=== PATIENT | male | born 1965 | race Caucasian/White ===

== ENCOUNTER 2020-09-04 09:22 | Day surgery (SDC) | payer BC ==
[2020-09-03 09:46] VITALS: BMI 30.7
[2020-09-04] MEDS ORDERED: AFRIN NASAL MIST 15 ML BOT ONE ×2 (10:45→11:59)
[2020-09-04] MEDS ORDERED: Ferric Subsulfate (ASTRINGYN) 8 GM VIAL ONE (11:59)
[2020-09-04] MEDS ORDERED: Lidocaine 1% w/Epinephrine 1:100K 20 ML VIAL ONE (11:59)
[2020-09-04] MEDS ORDERED: Bacitracin Zinc Ointment 30 gm TUBE ONE (11:59)
[2020-09-04] MEDS ORDERED: Fentanyl 100 MCG/2 ML VIAL ONE ×2 (12:03→14:26)
[2020-09-04] MEDS ORDERED: Midazolam HCl 2 mg/2 ml Vial ONE (12:12)
[2020-09-04] MEDS ORDERED: PROPOFOL 200 MG/20 ML VIAL ONE (12:24)
[2020-09-04] MEDS ORDERED: Succinylcholine 200 MG/10 ml SYRINGE FS ONE (12:24)
[2020-09-04] MEDS ORDERED: Lidocaine 1% PF 5 ML VIAL ONE (12:24)
[2020-09-04] MEDS ORDERED: Ondansetron PF 4 MG/2 ML Vial ONE (12:24)
[2020-09-04] MEDS ORDERED: Rocuronium Bromide 10 MG/ML (10ML VIAL) ONE (12:24)
[2020-09-04] MEDS ORDERED: methylPREDNISolone Acetate 40 mg/ml Vial ONE (13:16)
[2020-09-04] MEDS ORDERED: Meperidine HCl/PF 25 MG/ML VIAL ONE (13:53)
[2020-09-04] MEDS ORDERED: hydrALAZINE 20 MG/ML VIAL ONE (14:19)
[2020-09-04] MEDS ORDERED: Hydrocodone-Acetamin 15 ML UDCUP ONE (15:07)
== END 2020-09-04 16:46 | disposition home or self-care (01) ==
LOC: SDC 09:22
PROVIDERS: ATTEND Otolaryngology Plastic Surgery within the Head & Neck
PROC: 099R8ZZ Drainage of Left Maxillary Sinus, Via Natural or Artificial Opening Endoscopic (ICD-10-PCS; principal; 2020-09-04)
PROC: 09TU8ZZ Resection of Right Ethmoid Sinus, Via Natural or Artificial Opening Endoscopic (ICD-10-PCS; principal; 2020-09-04)
PROC: 099S8ZZ Drainage of Right Frontal Sinus, Via Natural or Artificial Opening Endoscopic (ICD-10-PCS; principal; 2020-09-04)
PROC: 09SM0ZZ Reposition Nasal Septum, Open Approach (ICD-10-PCS; principal; 2020-09-04)
PROC: 09TL8ZZ Resection of Nasal Turbinate, Via Natural or Artificial Opening Endoscopic (ICD-10-PCS; principal; 2020-09-04)
PROC: 0CTQXZZ Resection of Adenoids, External Approach (ICD-10-PCS; principal; 2020-09-04)
PROC: 0CTPXZZ Resection of Tonsils, External Approach (ICD-10-PCS; principal; 2020-09-04)
PROC: 099X8ZZ Drainage of Left Sphenoid Sinus, Via Natural or Artificial Opening Endoscopic (ICD-10-PCS; principal; 2020-09-04)
PROC: 0CBNXZZ Excision of Uvula, External Approach (ICD-10-PCS; principal; 2020-09-04)
PROC: 09TV8ZZ Resection of Left Ethmoid Sinus, Via Natural or Artificial Opening Endoscopic (ICD-10-PCS; principal; 2020-09-04)
PROC: 099T8ZZ Drainage of Left Frontal Sinus, Via Natural or Artificial Opening Endoscopic (ICD-10-PCS; principal; 2020-09-04)
PROC: 099W8ZZ Drainage of Right Sphenoid Sinus, Via Natural or Artificial Opening Endoscopic (ICD-10-PCS; principal; 2020-09-04)
PROC: 099Q8ZZ Drainage of Right Maxillary Sinus, Via Natural or Artificial Opening Endoscopic (ICD-10-PCS; principal; 2020-09-04)
DX: J32.4 Chronic pansinusitis (principal); J34.2 Deviated nasal septum; J34.3 Hypertrophy of nasal turbinates; J35.03 Chronic tonsillitis and adenoiditis; K13.79 Other lesions of oral mucosa; G47.33 Obstructive sleep apnea (adult) (pediatric); Z79.2 Long term (current) use of antibiotics; Z79.82 Long term (current) use of aspirin; Z79.899 Other long term (current) drug therapy
CPT/HCPCS: 88304; 93005; 93010; J0360; J2175; J2250; J2405; J2704; J2920; J3010

== ENCOUNTER 2021-08-12 12:52 | Outpatient (CLI) | payer BC | END 2021-08-12 12:53 | disposition home or self-care (01) | LOC: RAD 12:53 | PROVIDERS: ATTEND Otolaryngology Plastic Surgery within the Head & Neck | DX: R13.12 Dysphagia, oropharyngeal phase (principal); R63.30 Feeding difficulties, unspecified; K21.9 Gastro-esophageal reflux disease without esophagitis | CPT/HCPCS: 74230 ==